=== PATIENT | female | born 1960 | race Caucasian/White ===

== ENCOUNTER 2019-03-26 05:18 | Emergency (ER) | payer OTHER ==
[~2019-03-26] VITALS: Ht 160 cm; Wt 90.0 kg
[2019-03-26 05:27] VITALS: BP 126/79
--- NOTE | 2019-03-26 05:45 | PHYS DOC ---
Past History Past Medical History: Diabetes, High Cholesterol, Hypertension Past Surgical History: Cholecystectomy, Other Additional Past Surgical Histo: jose dao Alcohol Use: None Drug Use: None Adult General Chief Complaint Chief Complaint: NAUSEA/VOMITING/DIARRHEA.." I am up here visiting.. and I had not had a stool for three days.. so I did a fleets... HPI HPI Patient is a 58 year old female who presents with generalized abdomen pain and persistent diarrhea for the last 2 days. Patient has known history of "pre" diabetes and takes metformin. Patient has not checked sugars because she is did not bring her stress test strips with her. Patient has been pushing clear fluids and Gatorade since the diarrhea started. Patient has had previous abdomen surgery for weight loss. No history of trauma. No history of bad food. Has been exposed to some occasional of has influenza. Recent travel from [facility]. No history Of immunosuppression. Review of Systems Review of Systems Constitutional: Denies fever or chills [] Eyes: Denies change in visual acuity, redness, or eye pain [] HENT: Denies nasal congestion or sore throat [] Respiratory: Denies cough or shortness of breath [] Cardiovascular: No additional information not addressed in HPI [] GI: Complaints of generalized abdominal pain, nausea, and diarrhea [] : Denies dysuria or hematuria [] Musculoskeletal: Denies back pain or joint pain [] Integument: Denies rash or skin lesions [] Neurologic: Denies headache, focal weakness or sensory changes [] Endocrine: Denies polyuria or polydipsia [] All other systems were reviewed and found to be within normal limits, except as documented in this note. Family History Family History Noncontributory Current Medications Current Medications See nursing for home meds Allergies Allergies No known drug allergies Physical Exam Physical Exam Constitutional: Moderate acute distress, non-toxic appearance. [] HENT: Normocephalic, atraumatic, bilateral external ears normal, oropharynx dry, no oral exudates, nose normal. [] Eyes: PERRLA, EOMI, conjunctiva normal, no discharge. [] Neck: Normal range of motion, no tenderness, supple, no stridor. [] Cardiovascular:Heart rate regular rhythm, no murmur [] Lungs & Thorax: Bilateral breath sounds equal at apex auscultation [] Abdomen: Bowel sounds hyperactive, soft, mild generalized tenderness, no masses, no pulsatile masses. Old surgical scars. . Discomfort more in lower left pelvic area on rebound. Reports no vaginal discharge or tenderness. Pelvic exam defer at this time. Skin: Warm, dry, no erythema, no rash. Poor turgor Back: No tenderness, no CVA tenderness. [] Extremities: No tenderness, no cyanosis, no clubbing, ROM intact, no edema. No true psoas sign Neurologic: Alert and oriented X 3, normal motor function, normal sensory function, no focal deficits noted. [] Psychologic: Affect anxious, judgement normal, mood normal. [] Current Patient Data Vital Signs Vital Signs Date Time Temp Pulse Resp B/P (MAP) Pulse Ox O2 Delivery O2 Flow Rate FiO2 03/26/19 05:27 99.3 100 16 98 Room Air EKG EKG [] Radiology/Procedures Radiology/Procedures [] Course & Med Decision Making Course & Med Decision Making Pertinent Labs and Imaging studies reviewed. (See chart for details) Patient remain on a clear fluid diet only for the next 48 hours. No solids or milk products for the next 48 hours. Must allow bowel rest. Take Tylenol ibuprofen for discomfort. May use [id number] Pepto-Bismol as directed for episodes of diarrhea. Marked discomfort may take Percocet up to 4 times a day. Take Zofran for nausea and vomiting. Follow-up primary care. Return if any concerns. Review ED labs with primary care on follow-up. Impression: 1. Abdomen Pain 2. Acute gastroenteritis- suspect viral 3. Diabetes - glucose 180 4. Elevation Bilirubin T and D 1.4/0.3 5. Dehydration [] Dragon Disclaimer Dragon Disclaimer This electronic medical record was generated, in whole or in part, using a voice recognition dictation system. Departure Departure: Disposition: 01 HOME/RESIDENCE PRIOR TO ADM Condition: STABLE Referrals: PCP,NO (PCP) Scripts Oxycodone Hcl/Acetaminophen (PERCOCET 5-325 MG TABLET ) 1 Each Tablet 1 TAB PO PRN QID PRN for PAIN MDD 4 Tablet(s) for 5 Days, #30 TAB 0 Refills Prov: JEFFERY NAYAK MD 03/26/19 Ondansetron Hcl (ZOFRAN) 8 Mg Tablet 8 MG PO QIDPRN PRN for NAUSEA/VOMITING, #30 BOTTLE Prov: JEFFERY NAYAK MD 03/26/19 Dragmariana Disclaimer This chart was dictated in whole or in part using Voice Recognition software in a busy, high-work load, and often noisy Emergency Department environment. It may contain unintended and wholly unrecognized errors or omissions. Dragon Disclaimer This chart was dictated in whole or in part using Voice Recognition software in a busy, high-work load, and often noisy Emergency Department environment. It may contain unintended and wholly unrecognized errors or omissions. Dragon Disclaimer This chart was dictated in whole or in part using Voice Recognition software in a busy, high-work load, and often noisy Emergency Department environment. It may contain unintended and wholly unrecognized errors or omissions. JEFFERY NAYAK MD Mar 26, 2019 05:45
[2019-03-26] MEDS ORDERED: IV RINGERS SOLUTION,LACTATED 1,000 ML IV SCH (06:00)
[2019-03-26] MEDS ORDERED: FAMOTIDINE 20 MG/2 ML VIAL IVP ONE (06:15)
[2019-03-26] MEDS ORDERED: ONDANSETRON PF 4 MG/2 ML VIAL. IVP ONE (06:15)
[2019-03-26] MEDS ORDERED: oxyCODONE/APAP 5/325 1 TAB TABLET PO ONE (06:15)
[2019-03-26 06:26] LABS: BASO # 0.1 x10^3/uL (0.0-0.2); BASO % 1 % (0-3); EOS # 0.2 x10^3/uL (0.0-0.7); EOS % 2 % (0-3); HEMATOCRIT 45.4 % (36.0-47.0); LYMPH # 0.4 x10^3/uL (1.0-4.8); LYMPH % 4 % (24-48); MEAN CORPUSCULAR HEMOGLOBIN 31 pg (25-35); MEAN CORPUSCULAR HGB CONC 33 g/dL (31-37); MEAN CORPUSCULAR VOLUME 92 fL (79-100); MONO # 0.4 x10^3/uL (0.0-1.1); MONO % 4 % (0-9); NEUT # 8.4 x10^3uL (1.8-7.7); NEUT % 89 % (31-73); PLATELET COUNT 230 x10^3/uL (140-400); RED BLOOD COUNT 4.91 x10^6/uL (3.50-5.40); RED CELL DISTRIBUTION WIDTH 13.3 % (11.5-14.5); WHITE BLOOD COUNT 9.5 x10^3/uL (4.0-11.0)
[2019-03-26 06:34] LABS: CALCIUM 8.5 mg/dL (8.5-10.1); CREATININE 0.8 mg/dL (0.6-1.0); GFR 73.9; POTASSIUM 3.8 mmol/L (3.5-5.1)
[2019-03-26 06:40] LABS: ALBUMIN 3.7 g/dL (3.4-5.0); DIRECT BILIRUBIN 0.3 mg/dL (0.0-0.2); TOTAL BILIRUBIN 1.4 mg/dL (0.2-1.0); TOTAL PROTEIN 7.2 g/dL (6.4-8.2)
[2019-03-26 06:47] LABS: INFLUENZA A PATIENT NEGATIVE (NEGATIVE); INFLUENZA B PATIENT NEGATIVE (NEGATIVE)
[2019-03-26] MEDS ORDERED: ONDA8TAB9 PO (06:51)
[2019-03-26] MEDS ORDERED: OXYC1TAB15 PO (06:52)
== END 2019-03-26 07:45 | disposition home or self-care (01) ==
LOC: ER 05:18
DX: K52.9 Noninfective gastroenteritis and colitis, unspecified (principal); E86.0 Dehydration; E11.9 Type 2 diabetes mellitus without complications; E80.7 Disorder of bilirubin metabolism, unspecified; E78.00 Pure hypercholesterolemia, unspecified; I10 Essential (primary) hypertension; Z90.49 Acquired absence of other specified parts of digestive tract
CPT/HCPCS: 36415; 80048; 80076; 82947; 83690; 85025; 86705; 86709; 86803; 87340; 87804; 96361; 96374; 96375; 99284; J2405; J3490; J7120